=== PATIENT | female | born 1970 | race Caucasian/White ===

== ENCOUNTER 2020-01-17 14:13 | Outpatient (CLI) | payer OTHER, SELFPAY ==
--- NOTE | 2020-01-17 14:18 | MM_ITS ---
WS: [id number] BILATERAL SCREENING DIGITAL MAMMOGRAM WITH CAD HISTORY: SCREENING COMPARISON: 01/14/2019 and 11/25/2017 Bilateral CC and MLO views submitted. Computer aided detection analyzed. Breast composition: There are scattered areas of fibroglandular density. No suspicious masses, microc alcifications or architectural distortion. MM/[id number] IMPRESSION: BI-RADS: 1-Negative FOLLOW UP: 1 Year Follow-up
== END 2020-01-17 14:14 | disposition home or self-care (01) ==
LOC: RADSHAW 14:18
PROVIDERS: PCP Physician Assistant Medical; Visit Provider Physician Assistant Medical
DX: Z12.31 Encounter for screening mammogram for malignant neoplasm of breast (principal)
CPT/HCPCS: 77067

== ENCOUNTER 2021-03-01 12:44 | Outpatient (CLI) | payer OTHER, SELFPAY ==
--- NOTE | 2021-03-01 12:52 | MM_ITS ---
WS: [id number] BILATERAL SCREENING DIGITAL MAMMOGRAM WITH CAD HISTORY: SCREENING COMPARISON: 01/17/2020 and 01/14/2019 Bilateral CC and MLO views submitted. Computer aided detection analyzed. Breast composition: There are scattered areas of fibroglandular density. No suspicious masses, microc alcifications or architectural distortion. Asymmetries within each breast are stable. MM/[id number] IMPRESSION: BI-RADS: 2-Benign FOLLOW UP: 1 Year Follow-up
== END 2021-03-01 12:45 | disposition home or self-care (01) ==
LOC: RADSHAW 12:47
PROVIDERS: PCP Physician Assistant Medical; Visit Provider Physician Assistant Medical
DX: Z12.31 Encounter for screening mammogram for malignant neoplasm of breast (principal)
CPT/HCPCS: 77067

== ENCOUNTER 2022-03-05 12:47 | Outpatient (CLI) | payer OTHER, SELFPAY ==
--- NOTE | 2022-03-05 13:06 | MM_ITS ---
WS: [id number] Bilateral screening 3D tomosynthesis digital mammogram, 03/05/2022 Clinical Data: SCREENING Comparison: 01/29/2021, 01/17/2020, 01/14/2019, 11/30/2017, 11/25/2017, 11/19/2016, 09/28/2013, 09/23/2013, 08/10, 07/28/2005. Findings: The breast parenchymal pattern shows fibroglandular tissue. No spiculated masses or clustered calcifi cations are seen. There are no secondary signs of carcinoma. There are lymph nodes in both axilla. MM/[id number] Impression: 1. Negative bilateral mammogram unchanged. 2. Recommend annual screening mammograms. BIRADS: 1-Negative FOLLOW UP: 1 Year Follow-up The CAD drawing checker was used.
== END 2022-03-05 12:48 | disposition home or self-care (01) ==
LOC: RAD 12:50
PROVIDERS: PCP Registered Nurse; Visit Provider Registered Nurse
DX: Z12.31 Encounter for screening mammogram for malignant neoplasm of breast (principal)
CPT/HCPCS: 77063; 77067

== ENCOUNTER 2022-06-07 09:56 | Emergency (ER) | payer OTHER, SELFPAY ==
[2022-06-07 10:03] VITALS: BP 120/70; PULSE 91; RESP 16; TEMP 36.2; O2SAT 100; BMI 29.2
--- NOTE | 2022-06-07 10:24 | W.ED.SKABFB ---
HPI - Skin/Abscess/Foreign Bdy General: Chief complaint: Skin/Abscess/Foreign Body Stated complaint: possible abcess tooth Time Seen by Provider: 06/07/22 09:59 Source: patient Mode of arrival: ambulatory History of Present Illness: 51-year-old female who presents emergency room complaining of dental pain in the area of her canine teeth on the left maxilla. She had been another outpatient clinic earlier this morning was given clindamycin and 60 mg IM Toradol. She would like to have it drained and came to the emergency room. Evidently this is been a recurring thing she says she had it several years ago has not seen a dentist for it as waxed and waned over that time and recently has worsened. complaint: abscess/boil Onset (ago): day(s) Location: face Pain Consistency: constant Relieving factors: none Exacerbating factors: palpation [facility] PFSH: Medical History (Updated 06/07/22 @ 10:26 by Patel Babin DO) No significant past medical history Surgical History (Updated 06/07/22 @ 10:26 by Patel Babin DO) No pertinent past surgical history Physical Exam Const: COMMON NORMALS: no acute distress GENERAL APPEARANCE: cooperative and comfortable ORIENTATION/CONSCIOUSNESS: Yes awake, Yes oriented to person, Yes oriented to place and Yes oriented to time HENMT: OTHER: Examination of the mouth was limited patient could not tolerate exam. Mild swelling there no facial swelling no identifiable fluctuant areas. Neuro: SENSORIUM/ORIENTATION: Yes oriented to person, Yes oriented to place and Yes oriented to time Course Vital Signs: Vital signs: Vital Signs Temperature 97.1 F L 06/07/22 10:03 Pulse Rate 91 06/07/22 10:03 Respiratory Rate 16 06/07/22 10:03 Blood Pressure 120/70 06/07/22 10:03 Pulse Oximetry 100 06/07/22 10:03 Oxygen Delivery Me thod 06/07/22 10:03 MDM - Skin/Abscess/Foreign Bdy Medicial Decision Making Patient could not tolerate exam even light palpation across the upper mandible through the lip she became quite angry and raised her hands at me. I cannot identify anything that appears to be drainable. Recommend that she seek definitive care from a dentist first available opportunity. She had previously been prescribed clindamycin at the other walk-in clinic recommend that she complete that given hydrocodone for pain. Discharge Plan Discharge Patient Disposition: Home Clinical Impression: Dental abscess Condition: Stable Prescriptions: New hydrocodone-acetaminophen 5-325 mg tablet 1 tab PO Q6H PRN (Reason: pain) Qty: 10 0RF Discharge Orders: Discharge ED (Routine); Ordered 06/07/22 Ordered By: Patel Babin Referrals: Jessica Mayer [Primary Care Provider] - Discharge Diet: Soft Mechanical Discharge Activity: Resume usual activity Patient Instructions: Dental Abscess (ED), Opioid Safety, Pain Management Activity Restrictions/Additional Instructions: You were seen today for dental infection. Would recommend you start the antibiotics that you were prescribed prior to coming to the emergency room.. Complete the full course of antibiotics. You should follow-up with a dentist as soon as you are able for definitive care. Coding Level of Care Code ED Housekeeper Child Care for Ria Schultz
== END 2022-06-07 10:37 | disposition home or self-care (01) ==
PROVIDERS: Emergency Provider Family Medicine; PCP Registered Nurse
DX: K04.7 Periapical abscess without sinus (principal)
CPT/HCPCS: 99283

== ENCOUNTER 2023-03-09 12:58 | Outpatient (CLI) | payer OTHER, SELFPAY ==
--- NOTE | 2023-03-09 13:00 | MM_ITS ---
WS: [id number] BILATERAL 3D TOMOSYNTHESIS DIGITAL SCREENING MAMMOGRAPHY WITH CAD CLINICAL INFORMATION: SCREENING HISTORY: Screening mammogram. No current complaints. COMPARISON: 03/05/2022 TECHNIQUE: Bilateral CC and MLO views. FINDINGS: Scattered fibroglandular densities bilaterally. No suspicious focal mass, asymmetry, calcifications, or architectural distortion. No evidence of malignancy. Incidental punctate and lucent centered calci fications. Evidence of prior lumpectomy with parenchymal fibrosis. IMPRESSION: MM/[id number] BI-RADS: 2-Benign FOLLOW UP: 1 Year Follow-up Recommend return to annual screening mammography.
== END 2023-03-09 12:59 | disposition home or self-care (01) ==
PROVIDERS: PCP Registered Nurse; Visit Provider Registered Nurse
DX: Z12.31 Encounter for screening mammogram for malignant neoplasm of breast (principal)
CPT/HCPCS: 77063; 77067

== ENCOUNTER 2024-03-10 12:52 | Outpatient (CLI) | payer OTHER, SELFPAY ==
--- NOTE | 2024-03-10 12:59 | MM_ITS ---
WS: [id number] BILATERAL SCREENING DIGITAL TOMOSYNTHESIS MAMMOGRAM WITH CAD HISTORY: SCREENING COMPARISON: 03/09/2023, 03/05/2022, 03/01/2021 Bilateral CC and MLO views with tomosynthesis and synthetic mammography submitted. Computer aided det ection analyzed. Breast composition: There are scattered areas of fibroglandular density. No suspicious masses, microc alcifications or architectural distortion. Benign calcifications. Stable asymmetry upper outer quadra nt LEFT breast. MM/MM scr [place] tomosynthesis [id number] IMPRESSION: BI-RADS: 2 - Benign. FOLLOW UP: 1 Year Follow-up
== END 2024-03-10 12:53 | disposition home or self-care (01) ==
LOC: RAD 12:56
PROVIDERS: PCP Nurse Practitioner Family; Visit Provider Registered Nurse
DX: Z12.31 Encounter for screening mammogram for malignant neoplasm of breast (principal); R92.323 Mammographic fibroglandular density, bilateral breasts; R92.1 Mammographic calcification found on diagnostic imaging of breast; N64.89 Other specified disorders of breast
CPT/HCPCS: 77063; 77067